=== PATIENT | female | born 1995 | race African-American/Black ===

== ENCOUNTER 2021-06-28 13:02 | Emergency (ER) | payer BC ==
[2021-06-28 13:58] LABS: #Eosinphils 0.1 10x3/uL (0.0-0.5); #Monocytes 0.5 10x3/uL (0.0-1.1); #Neutrophils 3.1 10x3/uL (1.5-8.4); %Basophils 0.7 % (0.0-2.0); %Eosinophils 0.9 % (0.0-6.0); %Lymphocytes 33.5 % (18.0-47.0); %Monocytes 9.1 % (0.0-10.0); %Neutrophils 55.6 % (40.0-75.0); Hemoglobin 12.9 g/dL (12.0-15.5); Mean Corpuscular HGB CONC 33.2 g/dL (32.0-36.0); Mean Corpuscular Hemoglobin 30.4 pg (27.0-33.0); Mean Corpuscular Volume 91.5 fl (81.6-98.3); Platelet Count 284 10x3/uL (150-450); RBC Distribution Width 12.2 % (11.5-14.5); Red Blood Cell (RBC) Count 4.25 10x6/uL (3.90-5.03); White Blood Cell (WBC) Count 5.6 10x3/uL (3.5-10.5)
== END 2021-06-28 14:35 | disposition home or self-care (01) ==
LOC: CSHERS 13:02
DX: O99.511 Diseases of the respiratory system complicating pregnancy, first trimester (principal); K64.4 Residual hemorrhoidal skin tags; Z3A.11 11 weeks gestation of pregnancy
CPT/HCPCS: 82274; 85025; 99283

== ENCOUNTER 2021-09-12 12:50 | Day surgery (SDC) | payer BC ==
[2021-09-12] MEDS ORDERED: hydrALAZINE 20 MG/ML VIAL SLOW IVP PRN (13:47)
[2021-09-12 14:13] LABS: Bilirubin Neg (Negative); Blood, Urine Negative (Negative); Clarity Clear (Clear); Glucose, Urine (Dipstick) Normal (Negative); Ketone, Urine Negative (Negative); Leukocyte Negative (Negative); Nitrite Negative (Negative); Protein, Urine (Dipstick) Negative (Neg-Trace); Urobilinogen Normal mg/dL (Less than 2)
[2021-09-12 14:14] LABS: Urine Culture Reflex No No
[2021-09-12 14:34] LABS: Bacteria/HPF Rare-Few HPF (None Seen); RBC/HPF 0-3 HPF (0-3); Squamous Epithelial 0-3 HPF (0-3); WBC/HPF 0-3 HPF (0-3)
== END 2021-09-12 15:35 | disposition home or self-care (01) ==
LOC: CSHLD/OP 12:50
PROVIDERS: ATTEND Obstetrics & Gynecology
DX: O26.892 Other specified pregnancy related conditions, second trimester (principal); R10.2 Pelvic and perineal pain; Z3A.21 21 weeks gestation of pregnancy; Z79.82 Long term (current) use of aspirin; Z88.0 Allergy status to penicillin; Z88.1 Allergy status to other antibiotic agents
CPT/HCPCS: 81001; 87480; 87510; 87660

== ENCOUNTER 2022-01-16 09:03 | Outpatient (CLI) | payer BC | END 2022-01-16 09:04 | disposition home or self-care (01) | LOC: CSHLAB 09:03 | PROVIDERS: ATTEND Obstetrics & Gynecology | DX: Z20.822 Contact with and (suspected) exposure to COVID-19 (principal) | CPT/HCPCS: 87811 ==

== ENCOUNTER 2022-01-21 04:35 | Inpatient (IN) | payer BC ==
[2022-01-21 04:58] VITALS: BMI 37.8
[2022-01-21] MEDS ORDERED: Lidocaine 1% (PF) 30 ML VIAL SC PRN (05:18)
[2022-01-21] MEDS ORDERED: Ondansetron PF 4 MG/2 ML Vial IVP PRN ×3 (05:18→19:44)
[2022-01-21] MEDS ORDERED: HYDROcodone/Acetaminophen 5/325 mg Tablet PO PRN ×3 (05:18→19:44)
[2022-01-21] MEDS ORDERED: hydrALAZINE 20 MG/ML VIAL SLOW IVP PRN ×2 (05:18→19:44)
[2022-01-21] MEDS ORDERED: Promethazine HCl 25 MG/ML VIAL IM PRN ×2 (05:18→06:25)
[2022-01-21] MEDS ORDERED: Ibuprofen 800 MG TAB PO PRN (05:18)
[2022-01-21] MEDS ORDERED: NS w/ Oxytocin 30 units 500 ML IV SCH (05:30)
[2022-01-21 05:36] LABS: Hemoglobin 12.7 g/dL (12.0-15.5); Mean Corpuscular Hemoglobin 27.1 pg (27.0-33.0); Mean Corpuscular Volume 82.1 fl (81.6-98.3); Mean Platelet Volume 9.7 fl (7.4-10.4); Platelet Count 233 10x3/uL (150-450); RBC Distribution Width 14.8 % (11.5-14.5); Red Blood Cell (RBC) Count 4.69 10x6/uL (3.90-5.03); White Blood Cell (WBC) Count 6.8 10x3/uL (3.5-10.5)
[2022-01-21 06:23] LABS: Hep B Surf Ag Non-Reactive S/CO (NonReactive)
[2022-01-21] MEDS ORDERED: ePHEDrine Sulfate 50 MG/10 ML VIAL SLOW IVP PRN (06:25)
[2022-01-21] MEDS ORDERED: Naloxone HCl 0.4 mg/ml Vial IVP PRN ×2 (06:25)
[2022-01-21] MEDS ORDERED: Lactated Ringer's 500 ML IV PRN (06:25)
[2022-01-21] MEDS ORDERED: diphenhydrAMINE 50 MG/ML VIAL IVP PRN (06:25)
[2022-01-21] MEDS ORDERED: Moisturizing Cream (Eucerin) 113 GM JAR TOP PRN (06:25)
[2022-01-21] MEDS ORDERED: Acetaminophen 325 MG TAB PO PRN (06:25)
[2022-01-21] MEDS: Lactated Ringer's 1,000 ML IV SCH ×2 (06:29→19:37)
[2022-01-21] MEDS ORDERED: Fentanyl 2 mcg/Bupivacaine 0.1% Cassette 100 ML EPIDURAL SCH (06:30)
[2022-01-21] MEDS ORDERED: Communication Order-Pharmacy FS SCH (06:30)
[2022-01-21 08:05] LABS: Syphilis Antibody Nonreactive (Nonreactive); Syphilis Antibody Index 0.04 S/CO (<1.00 Non-Reactive)
[2022-01-21] MEDS ORDERED: Methylergonovine 0.2 MG/ML VIAL ONE (11:25)
[2022-01-21] MEDS ORDERED: Carboprost 250 MCG/ML AMP ONE (11:26)
[2022-01-21] MEDS ORDERED: Fentanyl 2 mcg/Bup 0.1% Cadd 100 ML ONE (13:23)
[2022-01-21] MEDS: Misoprostol 200 MCG TAB ONE ×3 (17:21→17:23)
[2022-01-21 18:00] LABS: RapidComm Collect By CBN; pH (Cord, venous) 7.294 (7.250-7.350)
[2022-01-21 18:03] LABS: RapidComm Collect By CBN
[2022-01-21] MEDS ORDERED: Milk Of Magnesia 30 ML UDCUP PO PRN (19:44)
[2022-01-21] MEDS ORDERED: Preparation H Ointment 28 GM TUBE PR PRN (19:44)
[2022-01-21] MEDS ORDERED: Lanolin Ointment 7 GM TUBE TOP PRN (19:44)
[2022-01-21] MEDS ORDERED: Bisacodyl 10 MG SUPP PR PRN (19:44)
[2022-01-21] MEDS ORDERED: diphenhydrAMINE 25 MG CAP PO PRN (19:44)
[2022-01-21] MEDS ORDERED: Ferrous Sulfate 325 MG TAB PO SCH (20:00)
[2022-01-21] MEDS: Docusate 100 MG CAP PO SCH (22:37)
[2022-01-22] MEDS: Ibuprofen 800 MG TAB PO SCH ×5 (03:52→21:06)
[2022-01-22] MEDS: Prenatal Vitamin 1 TAB PO SCH (08:22)
[2022-01-22] MEDS: Docusate 100 MG CAP PO SCH ×2 (08:22→21:06)
[2022-01-22] MEDS: Ferrous Sulfate 325 MG TAB PO SCH ×2 (13:44→15:01)
[2022-01-22] MEDS ORDERED: Boostrix 0.5 ML (Tdap) VIAL (>/=7 yrs of age) IM ONE (19:44)
[2022-01-23] MEDS: Ibuprofen 800 MG TAB PO SCH ×2 (05:23→14:29)
[2022-01-23] MEDS: Ferrous Sulfate 325 MG TAB PO SCH ×2 (08:40→17:14)
[2022-01-23] MEDS: Prenatal Vitamin 1 TAB PO SCH (08:41)
[2022-01-23] MEDS: Docusate 100 MG CAP PO SCH (08:41)
[2022-01-23 09:37] VITALS: BP 130/60; TEMP 98
== END 2022-01-23 17:30 | disposition home or self-care (01) | DRG 807 ==
LOC: CSHLD/OP 04:35 → CSHLD 05:04 → CSHPP 20:40
PROVIDERS: ADMIT Obstetrics & Gynecology; ATTEND Obstetrics & Gynecology
PROC: 10E0XZZ Delivery of Products of Conception, External Approach (ICD-10-PCS; principal; 2022-01-21)
PROC: 10907ZC Drainage of Amniotic Fluid, Therapeutic from Products of Conception, Via Natural or Artificial Opening (ICD-10-PCS; 2022-01-21)
PROC: 10H07YZ Insertion of Other Device into Products of Conception, Via Natural or Artificial Opening (ICD-10-PCS; 2022-01-21)
PROC: 0HQ9XZZ Repair Perineum Skin, External Approach (ICD-10-PCS; 2022-01-21)
DX: O99.52 Diseases of the respiratory system complicating childbirth (principal); Z37.0 Single live birth; J45.909 Unspecified asthma, uncomplicated; O34.13 Maternal care for benign tumor of corpus uteri, third trimester; O77.0 Labor and delivery complicated by meconium in amniotic fluid; O70.0 First degree perineal laceration during delivery; O66.0 Obstructed labor due to shoulder dystocia; O36.63X0 Maternal care for excessive fetal growth, third trimester, not applicable or unspecified; D25.1 Intramural leiomyoma of uterus; Z3A.40 40 weeks gestation of pregnancy; Z79.899 Other long term (current) drug therapy; Z90.721 Acquired absence of ovaries, unilateral; Z88.1 Allergy status to other antibiotic agents; Z88.8 Allergy status to other drugs, medicaments and biological substances; Z91.018 Allergy to other foods
CPT/HCPCS: 51702; 82805; 85027; 86780; 86850; 86900; 86901; 87340; 99285; J7120

== ENCOUNTER 2023-02-02 19:54 | Day surgery (SDC) | payer OTHER ==
[2023-02-02 20:29] VITALS: BMI 35.3
[2023-02-02] MEDS ORDERED: hydrALAZINE 20 MG/ML VIAL SLOW IVP PRN (21:56)
== END 2023-02-02 22:14 | disposition home or self-care (01) ==
LOC: CSHLD/OP 19:54
PROVIDERS: ATTEND Obstetrics & Gynecology
DX: O99.512 Diseases of the respiratory system complicating pregnancy, second trimester (principal); J32.9 Chronic sinusitis, unspecified; O36.8120 Decreased fetal movements, second trimester, not applicable or unspecified; Z3A.24 24 weeks gestation of pregnancy; Z79.82 Long term (current) use of aspirin; Z88.1 Allergy status to other antibiotic agents; Z91.018 Allergy to other foods; Z90.722 Acquired absence of ovaries, bilateral

== ENCOUNTER 2023-05-08 09:11 | Inpatient (IN) | payer OTHER ==
[2023-05-08] MEDS ORDERED: Misoprostol 200 MCG TAB PR PRN (09:56)
[2023-05-08] MEDS ORDERED: Famotidine/PF 20 mg/2ml Vial SLOW IVP PRN (09:56)
[2023-05-08] MEDS ORDERED: Diphenoxylate HCl/Atropine Tablet PO PRN (09:56)
[2023-05-08] MEDS ORDERED: Carboprost 250 MCG/ML AMP IM PRN (09:56)
[2023-05-08] MEDS ORDERED: Bicitra 30 ML UDCUP PO PRN (09:56)
[2023-05-08] MEDS ORDERED: Promethazine HCl 25 MG/ML VIAL IM PRN ×2 (09:56→10:03)
[2023-05-08] MEDS ORDERED: hydrALAZINE 20 MG/ML VIAL SLOW IVP PRN ×2 (09:56→11:20)
[2023-05-08] MEDS ORDERED: Ondansetron PF 4 MG/2 ML Vial IVP PRN ×3 (09:56→10:03)
[2023-05-08] MEDS ORDERED: Methylergonovine 0.2 MG/ML VIAL IM PRN (09:56)
[2023-05-08] MEDS ORDERED: Lactated Ringer's 1,000 ML IV SCH (10:00)
[2023-05-08] MEDS ORDERED: Clindamycin/D5W 900 MG in Premix 1 BAG IVPB SCH (10:00)
[2023-05-08] MEDS ORDERED: Oxytocin 30 units/NS 500 ML 500 ML IV SCH (10:00)
[2023-05-08] MEDS ORDERED: Naloxone HCl 0.4 mg/ml Vial IV PRN (10:03)
[2023-05-08] MEDS ORDERED: Naloxone HCl 0.4 mg/ml Vial IVP PRN ×2 (10:03)
[2023-05-08] MEDS ORDERED: Morphine 4 MG/ML VIAL SLOW IVP PRN (10:03)
[2023-05-08] MEDS ORDERED: Moisturizing Cream (Eucerin) 113 GM JAR TOP PRN (10:03)
[2023-05-08] MEDS ORDERED: Ketorolac Tromethamine 30 MG/ML VIAL IVP PRN (10:03)
[2023-05-08] MEDS ORDERED: Promethazine HCl 25 MG SUPP PR PRN (10:03)
[2023-05-08] MEDS ORDERED: Meperidine HCl/PF 25 MG/ML VIAL SLOW IVP PRN (10:03)
[2023-05-08] MEDS ORDERED: fentaNYL 50 mcg/mL 1 mL Vial SLOW IVP PRN (10:03)
[2023-05-08] MEDS ORDERED: Morphine PF 10 MG/10 ML VIAL ONE (10:10)
[2023-05-08] MEDS ORDERED: Dexamethasone 4 mg/ml Vial ONE (10:11)
[2023-05-08] MEDS ORDERED: Ondansetron PF 4 MG/2 ML Vial ONE (10:11)
[2023-05-08] MEDS ORDERED: PHENYLEPHRINE-NS 100 MCG/ML 10 ML SYRINGE ONE (10:11)
[2023-05-08] MEDS ORDERED: Oxytocin 10 UNITS/ML VIAL ONE (10:11)
[2023-05-08] MEDS ORDERED: Communication Order-Pharmacy FS SCH (10:15)
[2023-05-08] MEDS ORDERED: Ketorolac Tromethamine 30 MG/ML VIAL IVP SCH (10:15)
[2023-05-08 10:20] LABS: Hematocrit 44.8 % (34.9-44.5); Hemoglobin 15.2 g/dL (12.0-15.5); Mean Corpuscular HGB CONC 33.9 g/dL (32.0-36.0); Mean Corpuscular Hemoglobin 30.8 pg (27.0-33.0); Mean Corpuscular Volume 90.9 fl (81.6-98.3); Mean Platelet Volume 10.7 fl (7.4-10.4); Platelet Count 179 10x3/uL (150-450); Red Blood Cell (RBC) Count 4.93 10x6/uL (3.90-5.03); White Blood Cell (WBC) Count 6.8 10x3/uL (3.5-10.5)
[2023-05-08 10:53] LABS: HBSAg Index 0.17 S/CO (0-0.99); Hep B Surf Ag - L&D Non-Reactive S/CO (NonReactive)
[2023-05-08 10:55] LABS: Syphilis Antibody Nonreactive (Nonreactive); Syphilis Antibody Index 0.02 S/CO (<1.00 Non-Reactive)
[2023-05-08] MEDS ORDERED: Ketorolac Tromethamine 30 MG/ML VIAL ONE (11:13)
[2023-05-08] MEDS ORDERED: Boostrix 0.5 ML (Tdap) VIAL (>/=7 yrs of age) IM ONE (11:20)
[2023-05-08] MEDS ORDERED: Bisacodyl 10 MG SUPP PR PRN (11:20)
[2023-05-08] MEDS ORDERED: Methylergonovine 0.2 MG/ML VIAL ONE (12:25)
[2023-05-08] MEDS ORDERED: Tranexamic Acid 1,000 MG/10 ML VIAL ONE (12:32)
[2023-05-08] MEDS: diphenhydrAMINE 50 MG/ML VIAL IVP PRN ×2 (17:04→21:52)
[2023-05-08] MEDS: Docusate 100 MG CAP PO SCH (21:49)
[2023-05-08] MEDS: Ferrous Sulfate 325 MG TAB PO SCH (21:49)
[2023-05-08] MEDS: Simethicone Chewable 80 MG TAB PO PRN (21:51)
[2023-05-08] MEDS ORDERED: Zolpidem Tartrate 5 MG TAB PO PRN (22:15)
[2023-05-09] MEDS: HYDROcodone/Acetaminophen 5/325 mg Tablet PO PRN ×5 (02:20→18:21)
[2023-05-09 06:21] LABS: Hematocrit 37.5 % (34.9-44.5); Hemoglobin 12.8 g/dL (12.0-15.5); Mean Corpuscular HGB CONC 34.1 g/dL (32.0-36.0); Mean Corpuscular Hemoglobin 30.6 pg (27.0-33.0); Mean Corpuscular Volume 89.7 fl (81.6-98.3); Mean Platelet Volume 10.9 fl (7.4-10.4); Platelet Count 192 10x3/uL (150-450); RBC Distribution Width 13.9 % (11.5-14.5); Red Blood Cell (RBC) Count 4.18 10x6/uL (3.90-5.03); White Blood Cell (WBC) Count 9.4 10x3/uL (3.5-10.5)
[2023-05-09] MEDS: Docusate 100 MG CAP PO SCH ×2 (08:41→21:56)
[2023-05-09] MEDS: Ferrous Sulfate 325 MG TAB PO SCH ×2 (08:47→19:33)
[2023-05-09] MEDS: Ibuprofen 800 MG TAB PO SCH ×2 (13:35→21:56)
[2023-05-09] MEDS: Acetaminophen 325 MG TAB PO PRN ×2 (17:03→18:21)
[2023-05-10] MEDS: Ibuprofen 800 MG TAB PO SCH ×3 (06:34→22:47)
[2023-05-10] MEDS: Ferrous Sulfate 325 MG TAB PO SCH (09:02)
[2023-05-10] MEDS: HYDROcodone/Acetaminophen 5/325 mg Tablet PO PRN ×2 (09:20→17:08)
[2023-05-10] MEDS: Simethicone Chewable 80 MG TAB PO PRN (09:20)
[2023-05-10] MEDS: Docusate 100 MG CAP PO SCH ×2 (09:20→22:47)
[2023-05-11] MEDS: Ibuprofen 800 MG TAB PO SCH (06:22)
[2023-05-11] MEDS: Ferrous Sulfate 325 MG TAB PO SCH ×2 (07:06→09:35)
[2023-05-11] MEDS ORDERED: Polyethylene Glycol 3350 17 GM Packet PO SCH (07:15)
[2023-05-11 07:32] VITALS: BP 134/83; TEMP 98.4
[2023-05-11] MEDS: Docusate 100 MG CAP PO SCH (08:05)
== END 2023-05-11 10:40 | disposition home or self-care (01) | DRG 787 ==
LOC: CSHLD/OP 09:11 → CSHLD 11:17 → CSHPP 16:03
PROVIDERS: ADMIT Obstetrics & Gynecology; ATTEND Obstetrics & Gynecology
PROC: 10D00Z1 Extraction of Products of Conception, Low, Open Approach (ICD-10-PCS; principal; 2023-05-08)
DX: O36.63X0 Maternal care for excessive fetal growth, third trimester, not applicable or unspecified (principal); O72.1 Other immediate postpartum hemorrhage; Z3A.37 37 weeks gestation of pregnancy; Z37.0 Single live birth; O34.13 Maternal care for benign tumor of corpus uteri, third trimester; D25.9 Leiomyoma of uterus, unspecified; Z88.1 Allergy status to other antibiotic agents; Z88.8 Allergy status to other drugs, medicaments and biological substances
CPT/HCPCS: 51702; 85027; 86780; 86850; 86900; 86901; 87340; 99285; J1100; J1200; J1885; J2175; J2210; J2274; J2405; J2590; J3490

== ENCOUNTER 2023-05-16 14:08 | Emergency (ER) | payer OTHER, SELFPAY | END 2023-05-16 15:19 | disposition home or self-care (01) | LOC: CSHERS 14:08 | DX: T81.30XA Disruption of wound, unspecified, initial encounter (principal) | CPT/HCPCS: 99283 ==